=== PATIENT | female | born 2000 | race Caucasian/White ===

== ENCOUNTER 2019-02-25 23:26 | Emergency (ER) | payer MEDICAID ==
[~2019-02-25] VITALS: Ht 162.6 cm; Wt 52.2 kg
[2019-02-25 23:30] VITALS: BP_SYST 148
[2019-02-26 02:15] VITALS: BP_SYST 135
== END 2019-02-26 02:15 | disposition home or self-care (01) ==
LOC: SED 23:26
DX: S52.91XA Unspecified fracture of right forearm, initial encounter for closed fracture (principal); V43.52XA Car driver injured in collision with other type car in traffic accident, initial encounter; Y93.89 Activity, other specified; Y92.410 Unspecified street and highway as the place of occurrence of the external cause; Y99.8 Other external cause status
CPT/HCPCS: 73060-TC; 73090; 99283